=== PATIENT | female | born 1980 | race Caucasian/White ===

== ENCOUNTER → 2019-11-19 | Outpatient (CLI) | payer OTHER ==
--- NOTE | 2019-11-19 11:41 | RAD ---
EXAM DESCRIPTION: KUB CLINICAL HISTORY: 39 years Female, NAUSEA COMPARISON: None. TECHNIQUE: 1 view of the abdomen was performed. FINDINGS: Multiple air distended bowel loops are identified with no evidence of bowel obstruction. Moderate amount of fecal material is identified. No abnormal calcifications are noted. IMPRESSION: Mild constipation. Electronically signed by: Maame Alva MD 11/19/2019 11:39 AM CDT
== END ==
LOC: LAB.O 11:01
PROVIDERS: ATTEND Registered Nurse General Practice
DX: R11.0 Nausea (principal); K59.00 Constipation, unspecified

== ENCOUNTER → 2019-12-25 | Outpatient (CLI) | payer OTHER | LOC: LAB.O 11:37 | PROVIDERS: ATTEND Nurse Practitioner Family | DX: R11.2 Nausea with vomiting, unspecified (principal) ==

== ENCOUNTER → 2020-07-11 | Outpatient (CLI) | payer OTHER | LOC: YCFC.O 12:11 | PROVIDERS: ATTEND Nurse Practitioner Family | DX: Z20.828 Contact with and (suspected) exposure to other viral communicable diseases (principal) ==